=== PATIENT | male | born 1950 | race Two or more races ===

== ENCOUNTER → 2024-06-29 | Outpatient (CLI) | payer OTHER, SELFPAY ==
[2024-06-29 13:13] LABS: Basophils # (Auto) 0.1 Thou/mm3 (0.0-0.2); Basophils % (Auto) 1 % (0-2.5); Eosinophils # (Auto) 0.6 Thou/mm3 (0.0-0.5); Eosinophils % (Auto) 10 % (0-10); Hematocrit 49.4 % (41.0-53.0); Hemoglobin 16.8 g/dL (13.5-16.0); Immature Granulocytes % (Auto) 0 % (0-0); Immature Granulocytes Auto 0.02 Thou/mm3 (0.00-0.00); Lymphocytes # (Auto) 1.8 Thou/mm3 (1.0-4.8); Lymphocytes % (Auto) 29 % (10-50); Mean Corpuscular Hemoglobin 30.9 pg (25.0-35.0); Mean Corpuscular Volume 91 fL (80-100); Monocytes # (Auto) 0.7 Thou/mm3 (0.0-0.8); Monocytes % (Auto) 11 % (0-12); Neutrophils # (Auto) 3.2 Thou/mm3 (1.8-7.7); Neutrophils % (Auto) 50 % (37-80); Nucleated Red Blood Cell % 0 /100 WBC (0); Platelet Count 162 Thou/mm3 (140-440); RDW Standard Deviation 43.4 fL (35.1-43.9); Red Blood Count 5.43 Miln/mm3 (4.50-5.90); White Blood Count 6.3 Thou/mm3 (3.8-10.6)
[2024-06-29 13:35] LABS: Alanine Aminotransferase 24 U/L (10-49); Albumin, Serum 4.3 gm/dL (3.4-4.8); Alkaline Phosphatase 52 U/L (46-116); Anion Gap 7 (7-16); Aspartate Amino Transferase 16 U/L (0-34); BUN/Creatinine Ratio 12 Ratio (12-20); Bilirubin,Direct 0.4 mg/dL (0.0-0.3); Bilirubin,Total 1.3 mg/dL (0.3-1.2); Blood Urea Nitrogen 13 mg/dL (9-23); Calcium 9.3 mg/dL (8.3-10.6); Carbon Dioxide 29.9 mMol/L (20.0-31.0); Cardiac Risk Estimate 4.1 RATIO (4.0-6.7); Chloride 104 mMol/L (98-107); Cholesterol 142 mg/dL (132-200); Creatinine (Component) 1.1 mg/dL (0.6-1.3); Glucose 97 mg/dL (74-106); HDL Cholesterol 35 mg/dL (40-60); LDL Cholesterol,Calculated 58 mg/dL (0-130); Osmolality,Calculated 281 (275-295); Potassium 4.6 mMol/L (3.4-5.1); Sodium 141 mMol/L (136-145); Total Protein 7.1 gm/dL (5.7-8.2); Triglycerides 243 mg/dL (30-150); eGFR > 60 See Note
== END | disposition home or self-care (01) ==
LOC: COPL 12:39
PROVIDERS: PCP Family Medicine; Referring Provider Family Medicine; Visit Provider Family Medicine
DX: I10 Essential (primary) hypertension (principal); M19.071 Primary osteoarthritis, right ankle and foot
CPT/HCPCS: 36415; 80048; 80061; 80076; 85025

== ENCOUNTER 2024-10-14 23:19 | Observation (INO) | payer OTHER, MEDICARE, SELFPAY ==
--- NOTE | 2024-10-14 23:26 | XR_ITS ---
Examination: CT brain head without contrast. 2-D sagittal coronal reconstructions Date and time of exam:October 14, 2024 11:34 AM INDICATIONS: Onset stroke alert today, dizziness slurred speech and disorientation CTDI: vol (mGy):53.5 DLP: (mGycm):1094 Technique: Multiple CT axial sections of the brain have been obtained, 5 mm slice thickness. Contrast has not been administered. 2-D sagittal, coronal reconstructions have been obtained Low dose protocols were performed. One or more of the following dose reduction techniques were used; automated exposure control, adjustment of the mA and/or KV according to patient size, use of iterative reconstruction technique. Findings: No significant ventricular enlargement. Intra-axial or extra-axial hemorrhage density is not seen. No mass effect or midline shift Basal cisterns are not remarkable. Fourth ventricle is midline. Cranial vault intact. Impression: Negative for acute hemorrhage, mass effect or midline shift
--- NOTE | 2024-10-14 23:26 | XR_ITS ---
Examination: CTA carotids with intravenous contrast CTA brain, head with intravenous contrast. 2-D sagittal, coronal reconstructions. 3-D reconstructions. Exam date and time: October 14, 2024 11:38 PM INDICATIONS: Stroke alert, onset focal neurologic deficit today CTDI: vol (mGy) 11.3 DLP: (mGycm) 467 Technique: Multiple CTA axial brain, head carotid images post intravenous contrast injection 75 cc, Isovue-370. 2-D sagittal, coronal reconstructions. 3-D reconstructions, 3-D post processing including vascular maximum intensity projection images. Low dose protocols were performed. One or more of the following dose reduction techniques were used; automated exposure control, adjustment of the mA and/or KV according to patient size, use of iterative reconstruction technique. Findings: Heavy calcification right carotid bifurcation, 90% stenosis origin right internal carotid artery Moderate calcification left carotid bifurcation no critical stenoses No significant vertebral artery stenoses Basilar artery posterior cerebral branches fill with no large vessel occlusions No large vessel occlusions involving M1 segments middle cerebral arteries or middle cerebral artery trifurcation vessels as well as anterior cerebral arteries IMPRESSION: 90% stenosis origin right internal carotid artery No cerebral large vessel arterial occlusions or thrombus
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
--- NOTE | 2024-10-14 23:28 | PC.NURSE ---
Case # [id number] has been created for tele neuro
[2024-10-14 23:30] VITALS: BMI 33.1
[2024-10-14 23:50] VITALS: BP 161/89; PULSE 68; PULSE 69; PULSE 70; RESP 15; RESP 16; RESP 97; O2SAT 97
[2024-10-14 23:53] LABS: Basophils # (Auto) 0.1 Thou/mm3 (0.0-0.2); Basophils % (Auto) 1 % (0-2.5); Eosinophils # (Auto) 0.5 Thou/mm3 (0.0-0.5); Eosinophils % (Auto) 6 % (0-10); Hemoglobin 15.7 g/dL (13.5-16.0); Immature Granulocytes % (Auto) 0 % (0-0); Immature Granulocytes Auto 0.03 Thou/mm3 (0.00-0.00); Lymphocytes # (Auto) 1.8 Thou/mm3 (1.0-4.8); Lymphocytes % (Auto) 22 % (10-50); Mean Corpuscular HGB Conc 34.9 g/dl (31.0-37.0); Mean Corpuscular Hemoglobin 31.3 pg (25.0-35.0); Mean Corpuscular Volume 90 fL (80-100); Monocytes # (Auto) 0.8 Thou/mm3 (0.0-0.8); Monocytes % (Auto) 10 % (0-12); Neutrophils # (Auto) 4.9 Thou/mm3 (1.8-7.7); Neutrophils % (Auto) 61 % (37-80); Nucleated Red Blood Cell % 0 /100 WBC (0); Platelet Count 160 Thou/mm3 (140-440); RDW Standard Deviation 43.4 fL (35.1-43.9); Red Blood Count 5.01 Miln/mm3 (4.50-5.90); White Blood Count 8.1 Thou/mm3 (3.8-10.6)
--- NOTE | 2024-10-15 | ECHO_ITS ---
Transthoracic Echo Report Ht (in): 66 Wt (lb): 205 Exam Location: Echo Lab Status: Inpatient Liquefier: Shira Orozco Indications: Procedure Performed: BP: 152 / 87 HR: 59 Technical Quality: Technically difficult study MEASUREMENTS (Male / Female) Normal Values 2D ECHO LV Diastolic Diameter PLAX 4.0 cm 4.2 - 5.9 / 3.9 - 5.3 cm LV Systolic Diameter PLAX 2.9 cm IVS Diastolic Thickness 1.3 cm 0.6 - 1.0 / 0.6 - 0.9 cm LVPW Diastolic Thickness 1.3 cm 0.6 - 1.0 / 0.6 - 0.9 cm LV Relative Wall Thickness 0.6 LVOT Diameter 2.3 cm Aortic Root Diameter 3.2 cm LA Systolic Diameter LX 3.7 cm 3.0 - 4.0 / 2.7 - 3.8 cm LV Ejection Fraction MOD BP 59.0 % >= 55 % LV Cardiac Index MOD BP 1553.7 cm?/min?m? LV Ejection Fraction MOD 4C 62.2 % LV Cardiac Index MOD 4C 1559.3 cm?/min?m? LV Ejection Fraction 4C AL 63.4 % LV Cardiac Index 4C AL 1701.2 cm?/min?m? LV Ejection Fraction MOD 2C 55.0 % LV Cardiac Index MOD 2C 1419.8 cm?/min?m? LV Ejection Fraction 2C AL 54.8 % LV Cardiac Index 2C AL 1479.9 cm?/min?m? LA Volume Index 19.5 cm?/m? 16 - 28 cm?/m? DOPPLER AI Peak Velocity 132.0 cm/s AI Peak Gradient 7.0 mmHg AI Pressure Half Time 482.0 ms LVOT Peak Velocity 93.8 cm/s LVOT Peak Gradient 3.5 mmHg LVOT Velocity Time Integral 21.0 cm LVOT Cardiac Index 2433.8 cm?/min?m? MV Area PHT 3.5 cm? MR Peak Velocity 174.0 cm/s MR Peak Gradient 12.1 mmHg Mitral E Point Velocity 63.1 cm/s Mitral A Point Velocity 86.3 cm/s Mitral E to A Ratio 0.7 LV E' Lateral Velocity 7.8 cm/s Mitral E to LV E' Lateral Ratio 8.1 LV E' Septal Velocity 5.8 cm/s Mitral E to LV E' Septal Ratio 10.9 TR Peak Velocity 209.0 cm/s TR Peak Gradient 17.5 mmHg FINDINGS Left Ventricle Normal left ventricular size and systolic function with no obvious regional wall motion abnormalities. Mild LVH. Grade I diastolic dysfunction. The ejection fraction is visually estimated at 55-60%. Right Ventricle The right ventricle is normal in size and systolic function. Left Atrium The left atrium is normal by two-dimensional, color flow and Doppler imaging with no structural abnormalities, no thrombus formation present. Right Atrium The right atrium is normal by two-dimensional imaging, color flow and Doppler imaging with no structural abnormalities, no thrombus formation present. Atrial Septum The interatrial septum appears normal with no evidence of a shunt. Aorta The aorta is normal by two-dimensional, color flow and Doppler interrogation. Mitral Valve The mitral valve is normal by two-dimensional, color flow and Doppler interrogation. Mild mitral regurgitation. Aortic Valve The aortic valve is trileaflet and normal by two-dimensional, color flow and Doppler interrogation. Trace to mild aortic valve regurgitation. Tricuspid Valve The tricuspid valve is normal by two-dimensional, color flow and Doppler interrogation. There is mild tricuspid valve regurgitation. Pulmonic Valve The pulmonic valve is not well visualized. There is no significant pulmonic valve regurgitation. Vessels Inferior vena cava not well visualized. Pericardium The pericardium is normal by two-dimensional imaging. There is no significant pericardial effusion. CONCLUSIONS Indication: TIA Bubble study negative. Normal LV size and systolic function. Mild LVH. Grade I diastolic dysfunction. Estimated EF 55-60%. RV is normal in size and systolic function. Mild MR and TR. No Intracardiac shunts or thrombi Trace to mild AI. IVC not well visualized. Peggy Trejo (Electronically Signed) Final Date: 16 Oct 2024 06:29
[2024-10-15 00:01] LABS: INR 1.1 (0.9-1.3); Partial Thromboplastin Time 26.8 Seconds (22.0-36.0); Prothrombin Time 11.7 Seconds (9.0-12.2)
[2024-10-15 00:04] LABS: B-Type Natriuretic Peptide 28 pg/mL (0-100)
[2024-10-15 00:05] LABS: Alanine Aminotransferase 25 U/L (10-49); Albumin, Serum 4.4 gm/dL (3.4-4.8); Albumin/Globulin Ratio 1.6 (1.2-2.2); Alkaline Phosphatase 57 U/L (46-116); Anion Gap 8 (7-16); Aspartate Amino Transferase 19 U/L (0-34); BUN/Creatinine Ratio 13 Ratio (12-20); Bilirubin,Total 1.4 mg/dL (0.3-1.2); Blood Urea Nitrogen 14 mg/dL (9-23); Calcium 8.9 mg/dL (8.3-10.6); Calcium (Corrected) 8.9 mg/dL (8.5-10.1); Carbon Dioxide 25.4 mMol/L (20.0-31.0); Chloride 107 mMol/L (98-107); Creatinine (Component) 1.1 mg/dL (0.6-1.3); Estimated Creatinine Clearance 61.1 mL/min (>60); Globulin 2.7 gm/dL (2.3-3.5); Glucose 123 mg/dL (74-106); Magnesium 1.9 mg/dL (1.6-2.6); Osmolality,Calculated 280 (275-295); Potassium 3.8 mMol/L (3.4-5.1); Sodium 140 mMol/L (136-145); Total Protein 7.1 gm/dL (5.7-8.2); Troponin I < 0.020 ng/mL (0.0-0.045); eGFR > 60 See Note
--- NOTE | 2024-10-15 00:06 | PD.TNEURO ---
Tele Neuro Consultation Consultation Date 10/15/24 Most Recent Vital Signs Last Vital Signs Pulse 69 10/14/24 23:50 Resp 16 10/14/24 23:50 BP 161/89 H 10/14/24 23:50 Pulse Ox 97 10/14/24 23:50 O2 Del Method Room Air 10/14/24 23:50 Laboratory-Coagulation Panel PT 11.7 Seconds (9.0-12.2) 10/14/24 23:35 INR 1.1 (0.9-1.3) 10/14/24 23:35 APTT 26.8 Seconds (22.0-36.0) 10/14/24 23:35 Consultation Narrative [facility] Tele[facility]rology [facility] Patient Name:???Arik Roa Date of :???1950 Identification Number:??? Date of Service:???10/14/2024 23:28:27 Diagnosis:?I63.89 - Cerebrovascular accident (CVA) due to other mechanism ([facility]) Impression: ?74M presented with confusion, dizziness and headache. Not a thrombolytic candidate 2/2 non-debilitating symptoms (most of his symptoms are not gone and able to walk without assistance in ED) . Not an IR candidate 2/2 NIH low (no severely newly debilitating symptoms and LVO not suspected), CTA (or alternative vessel imaging) can be done routinely. Rec toxic metabolic infectious workup (U/A, COVID/flu +/-RSV, chest xray, UDS etc as per ED MD/primary team discretion), rec admission for CVA workup. Rec plavix load of 300 mg and ASA 81 mg now and then ASA 81 and plavix 75 starting tomorrow (if able to swallow and if not rec just ASA suppository). Our recommendations are outlined below. Recommendations: ? Stroke/Telemetry Floor ? Neuro Checks ? Bedside Swallow Eval ? DVT Prophylaxis ? IV Fluids, Normal Saline ? Head of Bed 30 Degrees ? Euglycemia and Avoid Hyperthermia (PRN Acetaminophen) ? Bolus with Clopidogrel 300 mg bolus x1 and initiate dual antiplatelet therapy with Aspirin 81 mg daily and Clopidogrel 75 mg daily ? Antihypertensives PRN if Blood pressure is greater than 220/120 or there is a concern for End organ damage/contraindications for permissive HTN. If blood pressure is greater than 220/120 give labetalol PO or IV or Vasotec IV with a goal of 15% reduction in BP during the first 24 hours. Sign Out: ? Discussed with Emergency Department Provider Advanced Imaging: Advanced Imaging Deferred because: NIH low (no severely newly debilitating symptoms and LVO not suspected), CTA (or alternative vessel imaging) can be done routinely Metrics: Last Known Well: 10/14/2024 22:20:00 Dispatch Time: 10/14/2024 23:28:27 Arrival Time: 10/14/2024 23:26:00 Initial Response Time: 10/14/2024 23:38:55Symptoms: slurred speech, headache and nausea. Initial patient interaction: 10/14/2024 23:47:02 NIHSS Assessment Completed: 10/14/2024 23:50:26Patient is not a candidate for Thrombolytic. Thrombolytic Medical Decision: 10/14/2024 23:50:27Patient was not deemed candidate for Thrombolytic because of following reasons: Stroke severity too mild (non-disabling) . I personally Reviewed the CT Head and it Showed no acute pathology Primary Provider Notified of Diagnostic Impression and Management Plan on: 10/14/2024 23:59:17 History of Present Illness:Patient is a 74 year old Male. Patient was brought by private transportation with symptoms of slurred speech, headache and nausea. 74 presented with slurred speech, headache and nausea. Speech was slurred and left throbbing headache and nausea. Never had symptoms like that before. In ED, symptoms have significantly improved. Never had symptoms like this before. No hx chronic headaches. He does feel like he still has a little slurred speech. LKN: 10:20 pm Past Medical History: ?Hypertension ?There is no history of Diabetes Mellitus ?There is no history of Hyperlipidemia ?There is no history of Atrial Fibrillation ?There is no history of Coronary Artery Disease ?There is no history of Stroke ?There is no history of Seizures Medications: No Anticoagulant use? No Antiplatelet use Reviewed EMR for current medications Allergies:? Reviewed Social History: Smoking: No Alcohol Use: No Drug Use: No Family History: There is no family history of premature cerebrovascular disease pertinent to this consultation ROS : 14 Points Review of Systems was performed and was negative except mentioned in HPI. Past Surgical History: There Is No Surgical History Contributory To Today?s Visit Examination: BP(146/81),?Pulse(65), 1A: Level of Consciousness - Alert; keenly responsive?+ 0 1B: Ask Month and Age - Both Questions Right?+ 0 1C: Blink Eyes & Squeeze Hands - Performs Both Tasks?+ 0 2: Test Horizontal Extraocular Movements - Normal?+ 0 3: Test Visual Hernandez - No Visual Loss?+ 0 4: Test Facial Palsy (Use Grimace if Obtunded) - Normal symmetry?+ 0 5A: Test Left Arm Motor Drift - No Drift for 10 Seconds?+ 0 5B: Test Right Arm Motor Drift - No Drift for 10 Seconds?+ 0 6A: Test Left Leg Motor Drift - No Drift for 5 Seconds?+ 0 6B: Test Right Leg Motor Drift - No Drift for 5 Seconds?+ 0 7: Test Limb Ataxia (FNF/Heel-Leung) - No Ataxia?+ 0 8: Test Sensation - Normal; No sensory loss?+ 0 9: Test Language/Aphasia - Normal; No aphasia?+ 0 10: Test Dysarthria - Mild-Moderate Dysarthria: Slurring but can be understood?+ 1 11: Test Extinction/Inattention - No abnormality?+ 0 NIHSS Score:?1 NIHSS Free Text :?was able to walk, poor hearing at baseline Pre-Morbid Modified Jesus Scale:1 Points = No significant disability despite symptoms; able to carry out all usual duties and activities Spoke with :?ED MD Bolaños This consult was conducted in real time using interactive audio and video technology. Patient was informed of the technology being used for this visit and agreed to proceed. Patient located in hospital and provider located at home/office setting. Patient is being evaluated for possible acute neurologic impairment and high probability of imminent or life-threatening deterioration. I spent total of 30 minutes providing care to this patient, including time for face to face visit via telemedicine, review of medical records, imaging studies and discussion of findings with providers, the patient and/or family. Dr Anastacia Keys [facility] For Inpatient follow-up with [facility] physician please call [facility] at . As we are not an outpatient service for any post hospital discharge needs please contact the hospital for assistance. If you have any questions for the [facility] physicians or need to reconsult for clinical or diagnostic changes please contact us via [facility] at .
[2024-10-15 00:18] LABS: Collection Type, Urine Clean Catch
[2024-10-15 00:28] LABS: Bilirubin,Urine Negative (Negative); Blood,Urine Negative (Negative); Clarity,Urine Clear (Clear/Hazy); Color,Urine Lt-Yellow (Lt Yel-Yel); Glucose, Urine Negative (Negative); Ketones,Urine Negative (Negative); Leukocyte Esterase,Urine Negative (Negative); Nitrite,Urine Negative (Negative); Protein,Urine Negative (Neg - Trace); RBC,Urine < 1 /hpf (0-3); Specific Gravity,Urine 1.021 (1.001-1.035); Squamous Epithelial Cell,Urine < 1 /hpf (0-5); Urobilinogen,Urine Negative mg/dL (0.0-1.0); WBC,Urine < 1 /hpf (0-5)
[2024-10-15 00:41] LABS: Amphetamine/Methamp Scrn,U Negative (Negative); Barbiturate Screen,Urine Negative (Negative); Benzodiazepines Screen,Urine Negative (Negative); Benzoylecgonine Screen, Ur Negative (Negative); Fentanyl Screen,Urine Negative (Negative); Opiate Screen,Urine Negative (Negative); THC Screen,Urine Negative (Negative)
[2024-10-15] MEDS: ASPIRIN EC 81 MG TABEC PO ×2 (00:48→09:28)
[2024-10-15] MEDS: CLOPIDOGREL BISULFATE 75 MG TABLET 300 MG PO (00:48)
--- NOTE | 2024-10-15 00:55 | XR_ITS ---
Examination: MRI brain without intravenous contrast. Date and time of exam: October 15, 2024 0856 hours INDICATIONS: Onset slurred speech headaches and dizziness today Technique: Multiple axial and sagittal images of the brain obtained. Siemens high-resolution 1.5 Giselle short bore scanners utilized. Sagittal sections, T1-weighted, TR 500, TE 14, are performed. Axial sections proton-density and T2-weighted have been obtained. Inversion recovery axial images, TR 9, 260, TE 111, TI 2500. Diffusion weighted images, axial sections, TR 4800, TE 128, B value 1000 Axial sections, ADC map, TR 4800, TE 128 Findings: Enlargement of the sella turcica is not present. The optic chiasm and infundibular are not remarkable. Prepontine and interpeduncular cisterns are not enlarged. There is no localized enlargement of the medulla or jada. Fourth ventricle and cerebellar tonsils appear normal in position. No subacute area of hemorrhage density is seen. Mass in the cerebellopontine angle region is not evident. Globes symmetrical. Orbital musculature including medial lateral rectus muscles do not exhibit abnormality. Diffusion-weighted images demonstrate no focus of restricted diffusion. Increased white matter signal prominent Mass effect upon the ventricular system is not identified. Impression: Negative for acute hemorrhage mass effect or midline shift No acute infarct Prominent chronic microvascular white matter change
--- NOTE | 2024-10-15 01:02 | EVENTNT_ITS ---
Documentation for date of: 10/15/24 Event Note Event Note: A 74-year-old male presented to the ER with the chief complaint of headache and slurred speech. The patient described 30 minutes of a pounding headache and slurred speech. Symptoms began while he was driving; his noticed he was veering into the wrong [place]ilah. She instructed him to press puller, at which point he appeared confused and disoriented. He also reported left-sided facial tingling (now resolved). He also c/o disorientation, confusion. Patient denied neck pain, nausea, vomiting, chest pain, or shortness of breath. No prior history of similar symptoms or chronic headaches. He was brought to the ER by his due to concern for stroke. The patient has a history of HTN. Social history includes no smoking, no alcohol, and no recreational drug use. Baseline functional status is independent and healthy per . No history of pacemaker. In the ER, vital signs recorded as HR 69 bpm, RR 16, BP 161/89 mmHg. Stroke alert was called. On exam, symptoms significantly improved. Lab revealed Hb 15.7, WBC 8.1, Plt 160, Na 140, K 3.8, Cl 107, BUN 14, Cr 1.1, eGFR >60, BNP 28, Troponin <0.020, AST 19, ALT 25. CT head negative for acute hemorrhage, mass effect, or midline shift. Per neurology, not a thrombolytic candidate 2/2 non- debilitating symptoms (most symptoms resolved and patient ambulating independently). Not an IR candidate 2/2 low NIH and LVO not suspected. Admit for TIA workup.
--- NOTE | 2024-10-15 01:32 | PRELIM_ITS ---
CT angiogram of the head and neck with intravenous contrast (axial sections with sagittal and coronal reformats). October 14, 2024 at 2338 hours Clinical History: Focal neuro deficit, stroke suspected. Technique: Helical axial sections of the head and neck were obtained with intravenous contrast. Iterative reconstruction technique was employed to reduce patient radiation exposure. 3D/MIP reconstructed images were also provided. Comparison: None. Findings: There is atherosclerotic calcification along the thoracic aorta and great vessels. There is a classic three-vessel aortic arch configuration. Atherosclerotic calcification along the cervical carotid circulation results in greater than 70% stenosis at the proximal cervical right internal carotid artery per NASCET criteria which is flow-limiting and less than 50% stenosis on the left per NASCET criteria, which is [id number]. The cervical vertebral arteries are codominant without flow-limiting stenosis. There is no aneurysm or dissection of the cervical carotid or cervical vertebral circulation. Esophagus appears somewhat patulous. There is minimal scarring or subsegmental atelectasis suggested within the upper lungs. The intracranial vertebral arteries are intact without flow-limiting stenosis. The basilar artery is intact without flow-limiting stenosis. The posterior cerebral arteries are intact without flow-limiting stenosis. There is atherosclerotic calcification along the carotid siphons and supraclinoid int ernal carotid arteries which is [id number]. The anterior and middle cerebral arteries are intact without flow-limiting stenosis. There is no intracranial aneurysm or AVM. Impression: 1. No flow-limiting stenosis, aneurysm or dissection of the cervical carotid or cervical vertebral circulation. 2. No intracranial major proximal vessel occlusion, flow-limiting stenosis, aneurysm or AVM. Report Electronically Signed By: Rafat Hart 10/15/2024 1:32:17 AM [EST]
--- NOTE | 2024-10-15 01:43 | PD.RESHP ---
Documentation for date of: 10/15/24 HPI History of Present Illness History of present illness: Patient is a 74-year-old male, past medical history pertinent only for hypertension, who was brought into the ER due to chief complaint of slurred speech. Patient reported that he was driving from [place] to [place], and during the drive his noticed his speech was slurred, they pulled over the side of the road and took over driving and they went home. Upon reaching home the patient was still having slurred speech and complaining of dizziness and decided to come to the ER for evaluation. Stroke alert was called, teleneuro evaluated the patient, patient was deemed not a candidate for tPA due to low NIHSS score, was given loading doses of aspirin. CT and CTA was done and CTA showed 90% carotid artery stenosis, but negative for LVO. Patient will be admitted to medical floor for further stroke workup including MRI echocardiogram. Past medical history: As noted above Past surgical history: History of right knee meniscal tear repair Social history: Never smoker never alcohol use Review of Systems Review of Systems Systems Reviewed: All systems reviewed, normal except as documented Exam Vital Signs Pulse Resp BP Pulse Ox O2 Del Method 69 16 161/89 H 97 Room Air 10/14/24 23:50 10/14/24 23:50 10/14/24 23:50 10/14/24 23:50 10/14/24 23:50 Narrative Exam General: AOx3, cooperative, patient has misaligned dentures, Skin: Intact, no cyanosis or edema noted. HEENT: Atraumatic/normocephalic, TARYN, neck supple Heart: RRR, S1 and S2 without clicks or murmurs Lungs: Clear on auscultation bilaterally, no difficulty breathing Abdomen: Soft, nontender. Bowel sounds present . Vascular: Peripheral pulses palpable Neuro: No focal neurological deficits noted, normal power in extremities, no facial droop Results: Labs 10/14/24 23:35 10/14/24 23:35 Labs: Short CBC 10/14/24 Range/Units 23:35 WBC 8.1 (3.8-10.6) Thou/mm3 Hgb 15.7 (13.5-16.0) g/dL Hct 45.0 (41.0-53.0) % Plt Count 160 (140-440) Thou/mm3 BMP 10/14/24 23:35 Sodium 140 Potassium 3.8 Chloride 107 Carbon Dioxide 25.4 BUN 14 Creatinine 1.1 Glucose 123 H Calcium 8.9 Cardiac Enzymes 10/14/24 Range/Units 23:35 Troponin I < 0.020 (0.0-0.045) ng/mL Liver Function 10/14/24 Range/Units 23:35 Total Bilirubin 1.4 H (0.3-1.2) mg/dL AST 19 (0-34) U/L ALT 25 (10-49) U/L Alkaline Phosphatase 57 (46-116) U/L Albumin 4.4 (3.4-4.8) gm/dL Urine 10/14/24 Range/Units 00:09 Urine Color Lt-Yellow (Lt Yel-Yel) Urine Clarity Clear (Clear/Hazy) Urine pH 6.0 (5.0-7.0) Ur Specific [place] 1.021 (1.001-1.035) Urine Protein Negative (Neg - Trace) Urine Glucose (UA) Negative (Negative) Quality Measures Quality Measures stroke Suspected type of Stroke: TIA Tenecteplase given: Reason(s) Tenecteplase not given: Stroke severity too mild (non-disabling) not given Rehab services: PT evaluation ordered and Speech Language Pathology eval ordered VTE Prophylaxis: pharmaceutical Antithrombotic by day 2:: not indicated (describe) Statin ordered: >75 y/o moderate or high intensity dose Anticoagulation ordered for A-fib or flutter (current or hx): not indicated Advance care planning discussed with:: patient Medications Home Medications and Allergies Home Medications ?Medication ?Instructions ?Recorded ?Confirmed ?Type No Known Home Medications 07/12/23 07/12/23 History Allergies Allergy/AdvReac Type Severity Reaction Status Date / Time No Known Allergies Allergy Verified 10/14/24 23:23 Visit Medications Acetaminophen (Acetaminophen 325 Mg Tablet) 650 mg PO Q6H PRN PRN Reason: Fever >101.5 Stop: 11/14/24 00:53 Aspirin (Aspirin Ec 81 Mg Tabec) 81 mg PO QDAY JOEL Stop: 11/14/24 08:59 Atorvastatin Calcium (Atorvastatin Calcium 20 Mg Tablet) 40 mg PO HS JOEL Stop: 11/14/24 20:59 Clopidogrel Bisulfate (Clopidogrel Bisulfate 75 Mg Tablet) 75 mg PO QDAY JOEL Stop: 11/14/24 08:59 Enoxaparin Sodium (Enoxaparin Sod Inj 40 Mg/0.4 Ml Syringe) 40 mg SC QDAY JOEL Stop: 10/29/24 08:59 Ondansetron HCl (Ondansetron Inj 2 Mg/Ml Inj 2 Ml) 4 mg IV Q6H PRN; Protocol PRN Reason: NAUSEA OR VOMITING Stop: 11/14/24 00:53 Discontinued Medications Aspirin (Aspirin Ec 81 Mg Tabec) 81 mg PO X1 ONE Stop: 10/15/24 00:40 Last Admin: 10/15/24 00:48 Dose: 81 mg Clopidogrel Bisulfate (Clopidogrel Bisulfate 75 Mg Tablet) 300 mg PO X1 ONE Stop: 10/15/24 00:40 Last Admin: 10/15/24 00:48 Dose: 300 mg Assessment & Plan Plan Patient is a 74-year-old male, past medical history pertinent only for hypertension, who was brought into the ER due to chief complaint of slurred speech. Patient will be admitted to medical floor for further stroke workup including MRI echocardiogram. #Stroke rule out?likely TIA Chief complaint of slurred speech, symptoms all resolved by the time of presentation to emergency room. No sensorimotor weakness in extremities, no focal neurological deficit at the moment. Per teleneuro not a candidate for tPA, low NIHSS score, given loading dose dose of antiplatelets, recommended starting patient on aspirin and Plavix and statin, admitting for further workup of stroke. CT and CTA was done and CTA showed 90% carotid artery stenosis, but negative for LVO. Patient will be admitted to medical floor for further stroke workup including MRI echocardiogram. ? Aspirin 81 mg daily ? Clopidogrel 75 mg daily ? Atorvastatin 40 mg nightly ? Permissive hypertension ? MRI brain ordered ? Echocardiogram ordered #History of hypertension Patient reported he takes 3 medications for hypertension, follows technical services coordinator Dr. Jessica Sheridan, he was referred by his PCP for hypertension. Reported he has no cardiac conditions in the past. No history of myocardial infarction. ? Permissive hypertension for now, will wait for med rec and reconcile home medications. Plan of care discussed with attending Dr. Js Cueto PGY2 Attending Provider Attestation/Addendum Pt was evaluated and plan formulated together with the housestaff team. I have reviewed the residents note above and agree with most of its content. Please refer to the residents note for additional details.
[2024-10-15 02:16] VITALS: BP 130/71; PULSE 62; RESP 16; TEMP 36.1; O2SAT 96
[2024-10-15 05:59] LABS: Basophils # (Auto) 0.1 Thou/mm3 (0.0-0.2); Basophils % (Auto) 1 % (0-2.5); Eosinophils # (Auto) 0.5 Thou/mm3 (0.0-0.5); Eosinophils % (Auto) 7 % (0-10); Hematocrit 47.2 % (41.0-53.0); Hemoglobin 16.2 g/dL (13.5-16.0); Immature Granulocytes % (Auto) 0 % (0-0); Immature Granulocytes Auto 0.02 Thou/mm3 (0.00-0.00); Lymphocytes # (Auto) 1.7 Thou/mm3 (1.0-4.8); Lymphocytes % (Auto) 25 % (10-50); Mean Corpuscular HGB Conc 34.3 g/dl (31.0-37.0); Mean Corpuscular Hemoglobin 31.3 pg (25.0-35.0); Mean Corpuscular Volume 91 fL (80-100); Monocytes # (Auto) 0.7 Thou/mm3 (0.0-0.8); Monocytes % (Auto) 11 % (0-12); Neutrophils % (Auto) 57 % (37-80); Nucleated Red Blood Cell % 0 /100 WBC (0); Platelet Count 168 Thou/mm3 (140-440); Red Blood Count 5.18 Miln/mm3 (4.50-5.90)
[2024-10-15 06:05] VITALS: BP 126/71; PULSE 51; RESP 19; O2SAT 97
[2024-10-15 06:18] LABS: Anion Gap 6 (7-16); BUN/Creatinine Ratio 11 Ratio (12-20); Blood Urea Nitrogen 12 mg/dL (9-23); Calcium 9.1 mg/dL (8.3-10.6); Carbon Dioxide 27.6 mMol/L (20.0-31.0); Chloride 107 mMol/L (98-107); Cholesterol 145 mg/dL (132-200); Creatinine (Component) 1.1 mg/dL (0.6-1.3); Estimated Creatinine Clearance 61.1 mL/min (>60); Glucose 105 mg/dL (74-106); HDL Cholesterol 29 mg/dL (40-60); LDL Cholesterol,Calculated 42 mg/dL (0-130); Osmolality,Calculated 280 (275-295); Potassium 4.9 mMol/L (3.4-5.1); Sodium 141 mMol/L (136-145); Thyroid Stimulating Hormone 2.98 uIU/mL (0.55-4.78); Triglycerides 370 mg/dL (30-150); eGFR > 60 See Note
[2024-10-15 07:26] LABS: Glucose Estimated Average 120 mg/dL (80-131); Hemoglobin A1C 5.8 % Hgb (4.8-6.0)
[2024-10-15] MEDS: ENOXAPARIN SOD INJ 40 MG/0.4 ML SYRINGE SC (09:28)
[2024-10-15] MEDS: CLOPIDOGREL BISULFATE 75 MG TABLET PO (09:28)
[2024-10-15 10:38] VITALS: BP 146/76; PULSE 55; RESP 16; TEMP 36.6; O2SAT 95
[2024-10-15 12:00] VITALS: BP 152/81; PULSE 61; PULSE 65; RESP 17; TEMP 36; O2SAT 97
[2024-10-15 16:00] VITALS: BP 123/57; PULSE 59; PULSE 60; RESP 15; TEMP 36; O2SAT 96
--- NOTE | 2024-10-15 17:46 | ESPR_ITS ---
<Statement entered by Bruna Romo MD - 10/17/24 15:11> Patient was seen and examined at bedside, Agree on the assessment and plan of this note. - Patient's plan and care discussed with my attending, Dr. Bj Romo MD Internal Medicine PGY-2 Documentation for date of: 10/15/24 Subjective Subjective Interval history: Patient examined at bedside today. No acute overnight events. Patient reports that he just had some slurred speech that resolved shortly after while driving. He also reports that he had similar symptoms couple of months back in which he had some blurry vision and that had resolved quickly. No other complaints at this time. Exam Vital Signs Temp Pulse Resp BP Pulse Ox O2 Del Method O2 Flow Rate 96.8 F 59 L 17 152/81 H 97 Nasal Cannula 2 10/15/24 12:00 10/15/24 16:00 10/15/24 12:00 10/15/24 12:00 10/15/24 12:00 10/15/24 12:00 10/15/24 12:00 Narrative Exam General: AOx3, cooperative, patient has misaligned dentures, Skin: Intact, no cyanosis or edema noted. HEENT: Atraumatic/normocephalic, TARYN, neck supple Heart: RRR, S1 and S2 without clicks or murmurs Lungs: Clear on auscultation bilaterally, no difficulty breathing Abdomen: Soft, nontender. Bowel sounds present . Vascular: Peripheral pulses palpable Neuro: No focal neurological deficits noted, normal power in extremities, no facial droop Objective Labs 10/16/24 05:49 10/16/24 05:49 Labs: Laboratory Results - last 24 hr 10/14/24 10/14/24 10/15/24 00:09 23:35 04:37 WBC 8.1 7.0 RBC 5.01 5.18 Hgb 15.7 16.2 H Hct 45.0 47.2 MCV 90 91 MCH 31.3 31.3 MCHC 34.9 34.3 RDW Std Deviation 43.4 45.0 H Plt Count 160 168 Neut % (Auto) 61 57 Lymph % (Auto) 22 25 [place] % (Auto) 10 11 Eos % (Auto) 6 7 Baso % (Auto) 1 1 Neut # (Auto) 4.9 4.0 Lymph # (Auto) 1.8 1.7 [place] # (Auto) 0.8 0.7 Eos # (Auto) 0.5 0.5 Baso # (Auto) 0.1 0.1 Immature Gran # (Auto) 0.03 H 0.02 H Absolute Nucleated RBC 0.00 0.00 Immature Gran % 0 0 Nucleated RBC % 0 0 PT 11.7 INR 1.1 APTT 26.8 Sodium 140 141 Potassium 3.8 4.9 D Chloride 107 107 Carbon Dioxide 25.4 27.6 Anion Gap 8 6 L BUN 14 12 Creatinine 1.1 1.1 Estim Creat Clear Calc 61.1 61.1 eGFR > 60 > 60 BUN/Creatinine Ratio 13 11 L Glucose [address] Glu mg/dL 120 Hemoglobin A1c 5.8 Calculated Osmolality 280 280 Calcium 8.9 9.1 Corrected Calcium 8.9 Magnesium 1.9 Total Bilirubin 1.4 H AST 19 ALT 25 Alkaline Phosphatase 57 Troponin I < 0.020 B-Natriuretic Peptide 28 Total Protein 7.1 Albumin 4.4 Globulin 2.7 Albumin/Globulin Ratio 1.6 Triglycerides 370 H Cholesterol 145 LDL Cholesterol, Calc 42 HDL Cholesterol 29 L Cholesterol/HDL Ratio 5.0 TSH 2.98 Ur Collection Type Clean Catch Urine Color Lt-Yellow Urine Clarity Clear Urine pH 6.0 Ur Specific [place] 1.021 Urine Protein Negative Urine Glucose (UA) Negative Urine Ketones Negative Urine Blood Negative Urine Nitrite Negative Urine Bilirubin Negative Urine Urobilinogen (Auto) Negative Ur Leukocyte Esterase Negative Urine RBC < 1 Urine WBC < 1 Ur Squamous Epith Cells < 1 Urine Bacteria None Urine Opiates Screen Negative Urine Fentanyl Screen Negative Ur Barbiturates Screen Negative U Amphetamin/Meth Scrn Negative U Benzodiazepines Scrn Negative U Cocaine Metab Screen Negative U Marijuana (THC) Screen Negative Quality Measures Quality Measures stroke Suspected type of Stroke: TIA Tenecteplase given: Reason(s) Tenecteplase not given: Stroke severity too mild (non-disabling) not given Rehab services: PT evaluation ordered and Speech Language Pathology eval ordered VTE Prophylaxis: pharmaceutical Antithrombotic by day 2:: not indicated (describe) Statin ordered: >75 y/o moderate or high intensity dose Anticoagulation ordered for A- fib or flutter (current or hx): not indicated Advance care planning discussed with:: patient Assessment & Plan Assessment Current Active Medications: Generic Name Dose Route Start Last Admin Trade Name Freq PRN Reason Stop Dose Admin Acetaminophen 650 mg 10/15/24 00:54 Acetaminophen 325 Mg Tablet PO 11/14/24 00:53 Q6H PRN Fever >101.5 Aspirin 81 mg 10/15/24 09:00 10/15/24 09:28 Aspirin Ec 81 Mg Tabec PO 11/14/24 08:59 81 mg QDAY JOEL Administration Atorvastatin Calcium 40 mg 10/15/24 21:00 Atorvastatin Calcium 20 Mg Tablet PO 11/14/24 20:59 HS JOEL Clopidogrel Bisulfate 75 mg 10/15/24 09:00 10/15/24 09:28 Clopidogrel Bisulfate 75 Mg Tablet PO 11/14/24 08:59 75 mg QDAY JOEL Administration Enoxaparin Sodium 40 mg 10/15/24 09:00 10/15/24 09:28 Enoxaparin Sod Inj 40 Mg/0.4 Ml Syringe SC 10/29/24 08:59 40 mg QDAY JOEL Administration Ondansetron HCl 4 mg 10/15/24 00:54 Ondansetron Inj 2 Mg/Ml Inj 2 Ml IV 11/14/24 00:53 Q6H PRN NAUSEA OR VOMITING Protocol Plan Assessment Patient is a 74-year-old male, past medical history pertinent only for hypertension who was admitted for CVA rule out #Stroke rule out?likely TIA Chief complaint of slurred speech, symptoms all resolved by the time of presentation to emergency room. No sensorimotor weakness in extremities, no focal neurological deficit at the moment. Per teleneuro not a candidate for tPA, low NIHSS score, given loading dose dose of antiplatelets, recommended starting patient on aspirin and Plavix and statin, admitting for further workup of stroke. CT and CTA was done and CTA showed 90% carotid artery stenosis, but negative for LVO. Patient will be admitted to medical floor for further stroke workup including MRI echocardiogram A1c 5.8, LDL 42, TSH 2.98 Experienced TIA, especially considering resolution of symptoms, however will still continue to workup Plan: ? Aspirin 81 mg daily ? Clopidogrel 75 mg daily ? Atorvastatin 40 mg nightly ? Permissive hypertension ? MRI brain ordered ? Echocardiogram ordered ? Ultrasound carotid duplex ? Neurology consulted, appreciate recs ? PT and speech ? Neurochecks every 4 hours #History of hypertension #Prediabetes Patient reported he takes 3 medications for hypertension, follows hand printed circuit board assembler Dr. Jessica Sheridan, he was referred by his PCP for hypertension. Reported he has no cardiac conditions in the past. No history of myocardial infarction. A1c 5.8 Plan: ? Allowing for permissive hypertension ? Lipitor 40 mg #Health Maintenance Disposition: Telemetry DVT prophylaxis: Lovenox GI prophylaxis: None indicated at this time Diet: Low-fat CODE STATUS: Full Patient seen and care discussed with my senior resident, Dr. Romo, and my attending physician, Dr. Jaclyn Childress, PGY-1 Attending Provider Attestation/Addendum I attest that I was physically present for the evaluation, physical examination, lab and imaging review of the patient with the residents. I discussed the case with the residents and agree with the findings and plans of care as documented above. Honorio Anaya MD
--- NOTE | 2024-10-15 17:48 | XR_ITS ---
Examination: Carotid arterial duplex scan, ultrasound. Date and time of exam: October 15, 2024 1820 hours INDICATIONS: Confusion episodes beginning yesterday with driving, CT angiogram October 14, 2024 90% stenosis right internal carotid artery Technique: Multiple sonographic images have been obtained of the carotid arteries and vertebral arteries, B-mode/grayscale imaging and Doppler spectral analysis and color flow Peak systolic and diastolic velocities have been recorded. Systolic diastolic ratios have been calculated. Findings: Right peak systolic velocities: Distal internal carotid artery peak systolic velocity is 0.9 M/sec Proximal internal carotid artery peak systolic velocity is 0.9 M/sec Carotid bifurcation peak systolic velocity is 0.6 M/sec External carotid artery peak systolic velocity is 0.9 M/sec Vertebral artery flow is antegrade. Left peak systolic velocities: Distal internal carotid artery peak systolic velocity is 0.8 M/sec Proximal internal carotid artery peak systolic velocity is 0.5 M/sec Carotid bifurcation peak systolic velocity is 1.3 M/sec External carotid artery peak systolic velocity is 1.0 M/sec Vertebral artery flow is antegrade Doppler waveform analysis demonstrates spectral broadening bilaterally Impression: Right internal carotid artery demonstrates 20-40% stenosis. Left internal carotid artery demonstrates 10-30% stenosis. Given the CT angiogram appearance October 14, 2024, consider correlation with MRA neck post contrast follow-up
[2024-10-15 20:00] VITALS: BP 131/71; PULSE 58; RESP 17; TEMP 36.9; O2SAT 91
[2024-10-15] MEDS: ATORVASTATIN CALCIUM 20 MG TABLET 40 MG PO (20:03)
[2024-10-16] VITALS (7 sets, daily range): BP systolic 128–143; BP diastolic 70–78; PULSE 52–66; RESP 17–26; TEMP 35.9–36.7; O2SAT 92–99; BMI 32.6
[2024-10-16 06:25] LABS: Basophils % (Auto) 1 % (0-2.5); Eosinophils # (Auto) 0.5 Thou/mm3 (0.0-0.5); Eosinophils % (Auto) 7 % (0-10); Hematocrit 47.2 % (41.0-53.0); Hemoglobin 16.7 g/dL (13.5-16.0); Immature Granulocytes % (Auto) 0 % (0-0); Immature Granulocytes Auto 0.01 Thou/mm3 (0.00-0.00); Lymphocytes # (Auto) 1.5 Thou/mm3 (1.0-4.8); Lymphocytes % (Auto) 20 % (10-50); Mean Corpuscular HGB Conc 35.4 g/dl (31.0-37.0); Mean Corpuscular Hemoglobin 31.9 pg (25.0-35.0); Mean Corpuscular Volume 90 fL (80-100); Monocytes # (Auto) 0.7 Thou/mm3 (0.0-0.8); Monocytes % (Auto) 9 % (0-12); Neutrophils # (Auto) 4.8 Thou/mm3 (1.8-7.7); Neutrophils % (Auto) 63 % (37-80); Nucleated Red Blood Cell % 0 /100 WBC (0); Platelet Count 160 Thou/mm3 (140-440); RDW Standard Deviation 43.5 fL (35.1-43.9); Red Blood Count 5.23 Miln/mm3 (4.50-5.90); White Blood Count 7.6 Thou/mm3 (3.8-10.6)
[2024-10-16 06:39] LABS: Anion Gap 5 (7-16); BUN/Creatinine Ratio 13 Ratio (12-20); Blood Urea Nitrogen 15 mg/dL (9-23); Calcium 8.5 mg/dL (8.3-10.6); Carbon Dioxide 27.8 mMol/L (20.0-31.0); Chloride 108 mMol/L (98-107); Creatinine (Component) 1.2 mg/dL (0.6-1.3); Estimated Creatinine Clearance 55.5 mL/min (>60); Glucose 107 mg/dL (74-106); Osmolality,Calculated 282 (275-295); Potassium 4.4 mMol/L (3.4-5.1); Sodium 141 mMol/L (136-145); eGFR > 60 See Note
--- NOTE | 2024-10-16 08:46 | PC.SS ---
Update: Neurology recommendation is pending. Physical therapy evaluation is pending.
[2024-10-16] MEDS: ASPIRIN EC 81 MG TABEC PO (09:18)
[2024-10-16] MEDS: ENOXAPARIN SOD INJ 40 MG/0.4 ML SYRINGE SC (09:18)
[2024-10-16] MEDS: CLOPIDOGREL BISULFATE 75 MG TABLET PO (09:19)
--- NOTE | 2024-10-16 10:58 | PC.SS ---
HEAVY EQUIPMENT FIELD MECHANIC conducted bedside contact with the patient conduct initial assessment and to discuss discharge planning.? Patient confirmed demographic information.? Patient resides at home with spouse, Becca Thompson .? Patient does not utilize DME to assist with ambulation.? Patient does not utilize home oxygen.? Patient describes the ability to complete ADL?s independently.? Patient identified spouse, Becca Thompson; as medical surrogate decision maker.? Patient?s PCP is Dr. Kian Hanson.? Patient does not participate with dialysis.? Patient?s electrocardiogram technician is Dr. Melissa.? Patient utilizes [facility] for medication services.? Plan is for the patient to return home at the time of discharge.? Family will provide transportation on behalf of the patient. ?No further discharge needs identified by the patient.? No further intervention required at this time, social services counselor will be available to address any further concerns.? Next of Kin: Becca Donna D/C Plan: Home
--- NOTE | 2024-10-16 14:22 | PC.PT ---
PT eval only. Patient is xI and does not require further skilled PT intervention. Patient is safe to ambulate to the bathroom and in the halls with no DME or staff assist. RN made aware.
--- NOTE | 2024-10-16 14:36 | PC.SS ---
Rounding Note: Neurology consult pending. Possible d/c home today.
--- NOTE | 2024-10-16 16:00 | PD.HHPROG ---
Documentation for date of: 10/16/24 Subjective - Hospitalist Subjective Interval history: At bedside today, patient states he is feeling well and does not have any new complaints. States that he is back to his baseline. Has been tolerating diet, saturating well on room air. Discussed with neurology, patient safe to discharge on oral medication after neurology sees him. Review of Systems Review of Systems Systems Reviewed: All systems reviewed, normal except as documented Exam Vital Signs Temp Pulse Resp BP Pulse Ox O2 Del Method O2 Flow Rate 97.0 F 63 21 H 133/71 H 97 Room Air 2 10/16/24 20:00 10/16/24 20:00 10/16/24 20:00 10/16/24 20:00 10/16/24 20:00 10/16/24 20:00 10/16/24 00:00 Narrative General: Alert and oriented, comfortable, able to answer questions and follow commands appropriately HEENT: EOMI, PERRLA, no pallor or icterus Cardio: RRR, S1 and S2 heard without murmurs Respiratory: Clear to auscultate bilaterally, no wheeze or crackles MSK: No edema Neuro:Alert and Oriented x 4, moving all her extremities, no focal neurological deficit Psych: Appropriate mood and behaviour Objective - Hospitalist Labs Diagram: 10/16/24 05:49 10/16/24 05:49 Labs: Laboratory Results - last 24 hr 10/16/24 05:49 WBC 7.6 RBC 5.23 Hgb 16.7 H Hct 47.2 MCV 90 MCH 31.9 MCHC 35.4 RDW Std Deviation 43.5 Plt Count 160 Neut % (Auto) 63 Lymph % (Auto) 20 [place] % (Auto) 9 Eos % (Auto) 7 Baso % (Auto) 1 Neut # (Auto) 4.8 Lymph # (Auto) 1.5 [place] # (Auto) 0.7 Eos # (Auto) 0.5 Baso # (Auto) 0.0 Immature Gran # (Auto) 0.01 H Absolute Nucleated RBC 0.00 Immature Gran % 0 Nucleated RBC % 0 Sodium 141 Potassium 4.4 D Chloride 108 H Carbon Dioxide 27.8 Anion Gap 5 L BUN 15 Creatinine 1.2 Estim Creat Clear Calc 55.5 L eGFR > 60 BUN/Creatinine Ratio 13 Glucose 107 H Calculated Osmolality 282 Calcium 8.5 Assessment & Plan Assessment: Patient is a 74-year-old male, past medical history pertinent only for hypertension who was admitted for CVA rule out # TIA Chief complaint of slurred speech, symptoms all resolved by the time of presentation to emergency room. No sensorimotor weakness in extremities, no focal neurological deficit at the moment. Per teleneuro not a candidate for tPA, low NIHSS score, given loading dose dose of antiplatelets, recommended starting patient on aspirin and Plavix and statin, admitting for further workup of stroke. CT and CTA was done and CTA showed 90% carotid artery stenosis, but negative for LVO. Patient will be admitted to medical floor for further stroke workup including MRI echocardiogram A1c 5.8, LDL 42, TSH 2.98 MRI brain was negative for acute hemorrhage, mass effect or midline shift Echocardiography negative for bubble study, normal left ventricular function, ejection fraction of 55-60, grade 1 diastolic dysfunction CTA head was concerning for right carotid artery stenosis of 90% but carotid Doppler ultrasound showed only 20 to 40% stenosis Plan: ? Aspirin 81 mg daily ? Clopidogrel 75 mg daily ? Atorvastatin 40 mg nightly ? MRI brain ordered ? Neurology consulted, appreciate recs ? PT and speech ? Neurochecks every 4 hours #Hypertension #Prediabetes Patient reported he takes 3 medications for hypertension, follows grand scribe Dr. Jessica Sheridan, he was referred by his PCP for hypertension. Reported he has no cardiac conditions in the past. No history of myocardial infarction. A1c 5.8 Plan: ? Patient's blood pressure and well-controlled currently ? We will add antihypertensives if blood pressure starts worsening #Hypertriglyceridemia Patient has triglyceride level of 370 Plan: Started on low-fat diet Disposition: Telemetry, awaiting neurology recommendation, anticipate discharge tomorrow DVT prophylaxis: Lovenox Diet: Low-fat CODE STATUS: Full code Honorio Anaya MD Time Spent with Patient Time: Total time spent is greater than 50% in coordination of care (as documented) at patient's floor/unit and/or counseling patient: Time with patient: Greater than 35 minutes Reason for Continued Stay Reason for continued stay: other Quality Measures Quality Measures stroke Suspected type of Stroke: TIA Tenecteplase given: Reason(s) Tenecteplase not given: Stroke severity too mild (non-disabling) not given Rehab services: PT evaluation ordered and Speech Language Pathology eval ordered VTE Prophylaxis: pharmaceutical Antithrombotic by day 2:: ordered Statin ordered: >75 y/o moderate or high intensity dose Anticoagulation ordered for A-fib or flutter (current or hx): not indicated Advance care planning discussed with:: patient
[2024-10-16] MEDS: ATORVASTATIN CALCIUM 20 MG TABLET 40 MG PO (21:57)
--- NOTE | 2024-10-16 23:42 | ESPR_ITS ---
Documentation for date of: 10/16/24 Subjective Subjective Interval history: Patient was seen in telemetry today at the bedside. Denies any recurrence of similar symptoms after admission or new symptoms. Exam - Neurology Vital Signs Temp Pulse Resp BP Pulse Ox O2 Del Method O2 Flow Rate 97.0 F 55 L 21 H 133/71 H 97 Room Air 2 10/16/24 20:00 10/16/24 23:00 10/16/24 20:00 10/16/24 20:00 10/16/24 20:00 10/16/24 20:00 10/16/24 00:00 Narrative Exam GENERAL APPEARANCE: Well hydrated, well-nourished in no acute distress. HEENT: Normocephalic, atraumatic, extraocular movements intact. Pupils: Equal reacting to light and accommodation. He has significant hearing loss at baseline NECK: Supple, no JVD or bruits. CARDIOVASULAR: Heart: S1, S2 heard, regular without S3-S4 or murmur no rubs or gallops. LUNGS/CHEST: Clear to auscultation bilaterally. No rails, rhonchi, or wheezing. Normal inspection. ABDOMEN: Soft, nontender, with normal bowel sounds. No pulsatile masses. No rebound, rigidity, or guarding. Normal inspection and palpation. EXTREMITIES: Normal inspection and palpation. No edema, clubbing or cyanosis. SKIN: Warm and dry without rashes. Normal inspection. MUSCULOSKELETAL: No cervical, thoracic, lumbar or midline bony tenderness. Normal inspection. NEURO: Alert, awake and oriented x3. Cranial nerves: II through XII grossly intact. Speech and language: Normal with no dysarthria or dysphasia. Motor system: Tone and bulk: Normal: Strength: 5 out of 5 in all 4 extremities; No pronator drift noted. Deep tendon reflexes: 2+ bilaterally symmetrical. Plantar reflex: Downgoing bilaterally. Sensory system: Intact to all modalities of sensation bilaterally. Coordination: Intact to [id number] and opvm-dwyn-kzgd test bilaterally. No ataxia, no dysmetria, or dysdiadochokinesia noted. No intention tremors noted. Gait: Normal. Toe, heel, tandem walk all are normal. Romberg: Negative. No signs of meningeal irritation noted. PSYCHIATRIC: Normal mood and affect. Objective Labs 10/17/24 05:10 10/17/24 05:10 Labs: Laboratory Results - last 24 hr 10/16/24 05:49 WBC 7.6 RBC 5.23 Hgb 16.7 H Hct 47.2 MCV 90 MCH 31.9 MCHC 35.4 RDW Std Deviation 43.5 Plt Count 160 Neut % (Auto) 63 Lymph % (Auto) 20 [place] % (Auto) 9 Eos % (Auto) 7 Baso % (Auto) 1 Neut # (Auto) 4.8 Lymph # (Auto) 1.5 [place] # (Auto) 0.7 Eos # (Auto) 0.5 Baso # (Auto) 0.0 Immature Gran # (Auto) 0.01 H Absolute Nucleated RBC 0.00 Immature Gran % 0 Nucleated RBC % 0 Sodium 141 Potassium 4.4 D Chloride 108 H Carbon Dioxide 27.8 Anion Gap 5 L BUN 15 Creatinine 1.2 Estim Creat Clear Calc 55.5 L eGFR > 60 BUN/Creatinine Ratio 13 Glucose 107 H Calculated Osmolality 282 Calcium 8.5 Assessment & Plan Assessment and plan (1) Brain TIA: Status: Acute Assessment and plan: Reassurance given to the patient regarding the workup negative for acute stroke, carotid Doppler showing 20 to 40% stenosis on the right and 10 to 30% on the left. No need for any further workup at this point. Continue with aspirin 81 mg, blood pressure control and statin patient is stable for discharge from neurostandpoint And follow-up in 2 weeks (2) Hypertension: Status: Chronic Assessment and plan: Continue with the blood pressure control
[2024-10-17] VITALS: BP 131/80; PULSE 59; RESP 25; TEMP 36.2; O2SAT 98
[2024-10-17 03:30] VITALS: PULSE 61
[2024-10-17 04:00] VITALS: BP 121/65; PULSE 56; RESP 30; TEMP 36.1; O2SAT 97
[2024-10-17 06:14] LABS: Basophils # (Auto) 0.1 Thou/mm3 (0.0-0.2); Basophils % (Auto) 1 % (0-2.5); Eosinophils # (Auto) 0.4 Thou/mm3 (0.0-0.5); Eosinophils % (Auto) 5 % (0-10); Hematocrit 45.4 % (41.0-53.0); Hemoglobin 15.9 g/dL (13.5-16.0); Immature Granulocytes % (Auto) 0 % (0-0); Immature Granulocytes Auto 0.02 Thou/mm3 (0.00-0.00); Lymphocytes # (Auto) 1.5 Thou/mm3 (1.0-4.8); Lymphocytes % (Auto) 16 % (10-50); Mean Corpuscular Hemoglobin 31.5 pg (25.0-35.0); Mean Corpuscular Volume 90 fL (80-100); Monocytes # (Auto) 0.9 Thou/mm3 (0.0-0.8); Monocytes % (Auto) 10 % (0-12); Neutrophils # (Auto) 6.2 Thou/mm3 (1.8-7.7); Neutrophils % (Auto) 68 % (37-80); Nucleated Red Blood Cell % 0 /100 WBC (0); Platelet Count 156 Thou/mm3 (140-440); RDW Standard Deviation 43.3 fL (35.1-43.9); Red Blood Count 5.05 Miln/mm3 (4.50-5.90)
[2024-10-17 06:39] LABS: Anion Gap 7 (7-16); BUN/Creatinine Ratio 15 Ratio (12-20); Blood Urea Nitrogen 16 mg/dL (9-23); Calcium 8.4 mg/dL (8.3-10.6); Carbon Dioxide 25.7 mMol/L (20.0-31.0); Chloride 107 mMol/L (98-107); Creatinine (Component) 1.1 mg/dL (0.6-1.3); Estimated Creatinine Clearance 60.2 mL/min (>60); Glucose 104 mg/dL (74-106); Osmolality,Calculated 280 (275-295); Potassium 4.2 mMol/L (3.4-5.1); Sodium 140 mMol/L (136-145); eGFR > 60 See Note
[2024-10-17 08:00] VITALS: BP 120/69; PULSE 69; PULSE 78; RESP 21; TEMP 36.3; O2SAT 95
[2024-10-17] MEDS: ENOXAPARIN SOD INJ 40 MG/0.4 ML SYRINGE SC (08:35)
[2024-10-17] MEDS: ASPIRIN EC 81 MG TABEC PO (08:36)
[2024-10-17] MEDS: CLOPIDOGREL BISULFATE 75 MG TABLET PO (08:36)
--- NOTE | 2024-10-17 10:14 | PD.DDS ---
Documentation for date of: 10/17/24 Summary Date and Time Date of admission: 10/15/24 00:54 Additional Data Attending physician: Honorio Anaya MD Visit Providers Provider Primary care physician: Kian Hanson MD Consults: 10/14/24 23:26 Consult to Neurology / Tele-Neurology Routine Comment: Consulting Provider: [facility] 10/15/24 02:06 Referral Physical Therapy Routine Comment: Physician Instructions: Referral Speech Therapy Routine Comment: 10/15/24 17:02 Consult to Neurology / Tele-Neurology Routine Comment: cva rule out Consulting Provider: Bhavik Carolina Discharge Plan Plan Patient Disposition: HOME (Self Care) Patient condition on transfer: Stable Care Plan Goals: Please follow up with your PCP and Neurology in 1-2 weeks of discharge. please return to the ED as soon as possible in case of medical emergency, recurrent of your symptoms . Use medications as prescribed Prescriptions/Referrals Prescriptions/Med Rec: New aspirin [Ecotrin Low Strength] 81 mg Tablet,Delayed Release (Dr/Ec) 81 mg PO QDAY 30 Days Qty: 30 0RF atorvastatin 20 mg Tablet 40 mg PO HS 30 Days Qty: 60 0RF Continued losartan 100 mg tablet 100 mg PO QDAY Patient Comments: TOME 1 TABLETA POR V A ORAL TODOS LOS D amlodipine 5 mg tablet 5 mg PO QDAY Patient Comments: TOME 1 TABLETA POR V A ORAL TODOS LOS D FOR 90 DAYS metoprolol succinate 25 mg tablet extended release 24 hr 25 mg PO QDAY Patient Comments: TOME 1 TABLETA POR V A ORAL TODOS LOS D Referrals: Kian Hanson MD [Primary Care Provider] - Patient/Caregiver Discharge Instructions Discharge Activity: activity as tolerated Education Materials: What Is a TIA?, Anatomy of the Brain, Discharge Instructions for ... Print Language: Nepali Stand Alone Forms: Soraida Award Info., Patient Portal Info Letter, Work/Release Restrictions Discharge Order Discharge Orders: Discharge (Routine); Ordered 10/17/24 Ordered By: Bruna Romo
[2024-10-17 12:00] VITALS: BP 117/66; PULSE 63; PULSE 67; RESP 24; TEMP 35.8; O2SAT 97
--- NOTE | 2024-10-17 15:15 | PD.RESDS ---
Planned Discharge Date 10/17/24 DS: Providers Provider Date of admission: 10/15/24 00:54 Primary care physician: Kian Hanson MD Admitting Provider: Fan Weinstein MD Attending Provider on Admission: Honorio Anaya MD Consults: 10/14/24 23:26 Consult to Neurology / Tele-Neurology Routine Comment: Consulting Provider: [facility] 10/15/24 02:06 Referral Physical Therapy Routine Comment: Physician Instructions: Referral Speech Therapy Routine Comment: 10/15/24 17:02 Consult to Neurology / Tele-Neurology Routine Comment: cva rule out Consulting Provider: Bhavik Carolina Attending Provider on DC: Bruna Romo MD Discharging Provider: Bruna Romo MD DS: Diagnosis Problem List Completed Was Problem List Reviewed/Reconciled?: Yes Hospital Course Hospital Course Hospital course: A 74-year-old male patient with past medical history of hypertension was brought to the ED due to slurred speech. 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 Patient also reported mild dizziness. At the ED patient underwent brain CT and CTA in which it was negative for any hemorrhage or mass effect however CTA was positive for right 90% carotid artery stenosis however echocardiogram was only 20 to 40% stenosis of the right carotid artery. But negative for any LVO. Patient was admitted for stroke workup was started on aspirin, clopidogrel, statin, MRI of the brain was negative for any hemorrhage or mass effect, echocardiogram was negative for any PFO and was only positive for grade 1 diastolic dysfunction. Ejection fraction was 55 to 60%. Consultation to the neurologist Dr Carolina recommended to continue the patient only on aspirin 81 mg daily and strict control of blood pressure. Patient's symptoms resolved completely and was deemed to be clinically stable for discharge discharging diagnosis: #TIA #Hypertension #Prediabetes #Hypertriglyceridemia Status at Discharge Functional status at discharge: independent ambulation Overall status at discharge: patient is back to baseline Time Spent with Patient Time attestation: Total time spent providing and/or coordinating discharge services: Time spent: Less than 30 minutes Exam Vital Signs Temp Pulse Resp BP Pulse Ox O2 Del Method O2 Flow Rate 96.5 F L 63 24 H 117/66 97 Room Air 2 10/17/24 12:00 10/17/24 12:00 10/17/24 12:00 10/17/24 12:00 10/17/24 12:00 10/17/24 12:00 10/16/24 00:00 Narrative Exam GEN: AOx3, able to speak full sentences HEENT: NC/AC, PERRLA, oral mucosa moist, neck supple CVS: RRR, S1-S2 present, no murmurs appreciated RESP: CTAB GI: soft,non distended, non tender, NBS MSK: able to move all 4 limbs, no lower extremity edema SKIN: warm and dry AREA COORDINATOR: CN II-XII and Sensation grossly intact. Discharge Plan Plan Patient Disposition: HOME (Self Care) Patient condition on transfer: Stable Care Plan Goals: Please follow up with your PCP and Neurology in 1-2 weeks of discharge. please return to the ED as soon as possible in case of medical emergency, recurrent of your symptoms . Use medications as prescribed Prescriptions/Referrals Prescriptions/Med Rec: New aspirin [Ecotrin Low Strength] 81 mg Tablet,Delayed Release (Dr/Ec) 81 mg PO QDAY 30 Days Qty: 30 0RF atorvastatin 20 mg Tablet 40 mg PO HS 30 Days Qty: 60 0RF Continued losartan 100 mg tablet 100 mg PO QDAY Patient Comments: TOME 1 TABLETA POR V A ORAL TODOS LOS D amlodipine 5 mg tablet 5 mg PO QDAY Patient Comments: TOME 1 TABLETA POR V A ORAL TODOS LOS D FOR 90 DAYS metoprolol succinate 25 mg tablet extended release 24 hr 25 mg PO QDAY Patient Comments: TOME 1 TABLETA POR V A ORAL TODOS LOS D Referrals: Kian Hanson MD [Primary Care Provider] - Patient/Caregiver Discharge Instructions Discharge Activity: activity as tolerated Education Materials: What Is a TIA?, Anatomy of the Brain, Discharge Instructions for ... Print Language: Surinamese Stand Alone Forms: Soraida Award Info., Patient Portal Info Letter, Work/Release Restrictions Discharge Order Discharge Orders: Discharge (Routine); Ordered 10/17/24 Ordered By: Bruna Romo Quality Discharge Quality Measures VTE prophylaxis Attestestation MD Attestation I attest that I was physically present for the evaluation, physical examination, lab and imaging review of the patient with the residents. I discussed the case with the residents and agree with the findings and plans of care as documented above. Honorio Anaya MD
--- NOTE | 2024-10-17 18:24 | PD.VPROG1 ---
Telemedicine visit statement This visit was conducted with the virtual visit was obtained on 10/17/24. Documentation for date of: 10/17/24 Subjective Subjective Interval history: Patient is in telemetry. No recent recurrent TIAs after admission. Virtual exam Vital Signs Temp Pulse Resp BP Pulse Ox O2 Del Method O2 Flow Rate 96.5 F L 63 24 H 117/66 97 Room Air 2 10/17/24 12:00 10/17/24 12:00 10/17/24 12:00 10/17/24 12:00 10/17/24 12:00 10/17/24 12:00 10/16/24 00:00 Objective Labs 10/17/24 05:10 10/17/24 05:10 Labs: Laboratory Results - last 24 hr 10/17/24 05:10 WBC 9.0 RBC 5.05 Hgb 15.9 Hct 45.4 MCV 90 MCH 31.5 MCHC 35.0 RDW Std Deviation 43.3 Plt Count 156 Neut % (Auto) 68 Lymph % (Auto) 16 [place] % (Auto) 10 Eos % (Auto) 5 Baso % (Auto) 1 Neut # (Auto) 6.2 Lymph # (Auto) 1.5 [place] # (Auto) 0.9 H Eos # (Auto) 0.4 Baso # (Auto) 0.1 Immature Gran # (Auto) 0.02 H Absolute Nucleated RBC 0.00 Immature Gran % 0 Nucleated RBC % 0 Sodium 140 Potassium 4.2 Chloride 107 Carbon Dioxide 25.7 Anion Gap 7 BUN 16 Creatinine 1.1 Estim Creat Clear Calc 60.2 L eGFR > 60 BUN/Creatinine Ratio 15 Glucose 104 Calculated Osmolality 280 Calcium 8.4 Assessment & Plan Assessment 1) Brain TIA: Status: Acute Assessment and plan: Reassurance given to the patient regarding the workup negative for acute stroke, carotid Doppler showing 20 to 40% stenosis on the right and 10 to 30% on the left. No need for any further workup at this point. Continue with aspirin 81 mg, blood pressure control and statin patient is stable for discharge from [facility] And follow-up in 2 weeks (2) Hypertension: Status: Chronic Assessment and plan: Continue with the blood pressure control
== END 2024-10-17 12:39 | disposition home or self-care (01) ==
LOC: SERX 10-15 00:40 → SERHOLD 10-15 03:30 → S2NX 10-15 14:39
PROVIDERS: Admitting Provider Internal Medicine; Emergency Provider Emergency Medicine; PCP Family Medicine; Visit Provider Student in an Organized Health Care Education/Training Program
DX: G45.9 Transient cerebral ischemic attack, unspecified (principal); I10 Essential (primary) hypertension; R73.03 Prediabetes; E78.1 Pure hyperglyceridemia; Z79.02 Long term (current) use of antithrombotics/antiplatelets; Z79.82 Long term (current) use of aspirin; Z79.899 Other long term (current) drug therapy; Z88.6 Allergy status to analgesic agent
CPT/HCPCS: 36415; 70450; 70496; 70498; 70551; 80048; 80053; 80061; 80307; 81001; 83036; 83735; 83880; 84443; 84484; 85025; 85610; 85730; 87086; 92610; 93005; 93306; 93880; 96372; 97161; 99291; A4649; G0378; J1650; Q9967; A9270

== ENCOUNTER → 2025-01-26 | Outpatient (CLI) | payer OTHER, SELFPAY ==
[2025-01-26 12:51] LABS: Basophils # (Auto) 0.1 Thou/mm3 (0.0-0.2); Basophils % (Auto) 1 % (0-2.5); Eosinophils # (Auto) 0.3 Thou/mm3 (0.0-0.5); Eosinophils % (Auto) 5 % (0-10); Hematocrit 45.7 % (41.0-53.0); Hemoglobin 15.2 g/dL (13.5-16.0); Immature Granulocytes Auto 0.01 Thou/mm3 (0.00-0.00); Lymphocytes # (Auto) 1.8 Thou/mm3 (1.0-4.8); Lymphocytes % (Auto) 27 % (10-50); Mean Corpuscular HGB Conc 33.3 g/dl (31.0-37.0); Mean Corpuscular Hemoglobin 31.4 pg (25.0-35.0); Mean Corpuscular Volume 94 fL (80-100); Monocytes # (Auto) 0.6 Thou/mm3 (0.0-0.8); Monocytes % (Auto) 9 % (0-12); Neutrophils # (Auto) 4.0 Thou/mm3 (1.8-7.7); Neutrophils % (Auto) 59 % (37-80); Nucleated Red Blood Cell # 0.00 Thou/mm3 (0.00-0.00); Nucleated Red Blood Cell % 0 /100 WBC (0); Platelet Count 149 Thou/mm3 (140-440); RDW Standard Deviation 44.0 fL (35.1-43.9); Red Blood Count 4.84 Miln/mm3 (4.50-5.90); White Blood Count 6.7 Thou/mm3 (3.8-10.6)
[2025-01-26 13:02] LABS: Glucose Estimated Average 128 mg/dL (80-131); Hemoglobin A1C 6.1 % Hgb (4.8-6.0)
[2025-01-26 13:08] LABS: Alanine Aminotransferase 38 U/L (10-49); Albumin, Serum 4.2 gm/dL (3.4-4.8); Albumin/Globulin Ratio 1.7 (1.2-2.2); Alkaline Phosphatase 48 U/L (46-116); Anion Gap 9 (7-16); Aspartate Amino Transferase 25 U/L (0-34); BUN/Creatinine Ratio 15 Ratio (12-20); Bilirubin,Total 2.1 mg/dL (0.3-1.2); Blood Urea Nitrogen 16 mg/dL (9-23); Calcium 9.3 mg/dL (8.3-10.6); Calcium (Corrected) 9.3 mg/dL (8.5-10.1); Carbon Dioxide 28.0 mMol/L (20.0-31.0); Cardiac Risk Estimate 2.7 RATIO (4.0-6.7); Chloride 106 mMol/L (98-107); Cholesterol 76 mg/dL (132-200); Creatinine (Component) 1.1 mg/dL (0.6-1.3); Free T4 (Free Thyroxine) 0.96 ng/dL (0.89-1.76); Globulin 2.5 gm/dL (2.3-3.5); Glucose 98 mg/dL (74-106); HDL Cholesterol 28 mg/dL (40-60); LDL Cholesterol,Calculated 20 mg/dL (0-130); Magnesium 1.8 mg/dL (1.6-2.6); Osmolality,Calculated 286 (275-295); Potassium 4.4 mMol/L (3.4-5.1); Sodium 143 mMol/L (136-145); Thyroid Stimulating Hormone 1.94 uIU/mL (0.55-4.78); Total Protein 6.7 gm/dL (5.7-8.2); Triglycerides 140 mg/dL (30-150); eGFR > 60 See Note
== END | disposition home or self-care (01) ==
LOC: COPL 10:51
PROVIDERS: PCP Family Medicine; Referring Provider Internal Medicine Cardiovascular Disease; Visit Provider Internal Medicine Cardiovascular Disease
DX: I10 Essential (primary) hypertension (principal); E66.9 Obesity, unspecified; R00.2 Palpitations
CPT/HCPCS: 36415; 80053; 80061; 83036; 83735; 84439; 84443; 85025

== ENCOUNTER → 2025-04-27 | Outpatient (CLI) | payer OTHER, SELFPAY ==
[2025-04-27 11:11] LABS: Anion Gap 7 (7-16); BUN/Creatinine Ratio 15 Ratio (12-20); Blood Urea Nitrogen 17 mg/dL (9-23); Calcium 8.8 mg/dL (8.3-10.6); Carbon Dioxide 29.6 mMol/L (20.0-31.0); Chloride 108 mMol/L (98-107); Creatinine (Component) 1.1 mg/dL (0.6-1.3); Glucose 97 mg/dL (74-106); Osmolality,Calculated 290 (275-295); Potassium 4.3 mMol/L (3.4-5.1); Sodium 145 mMol/L (136-145); Uric Acid 5.3 mg/dL (3.7-9.2); eGFR > 60 See Note
== END | disposition home or self-care (01) ==
PROVIDERS: PCP Family Medicine; Referring Provider Family Medicine; Visit Provider Family Medicine
DX: I10 Essential (primary) hypertension (principal); M25.522 Pain in left elbow
CPT/HCPCS: 36415; 80048; 84550